=== PATIENT | female | born 1955 | race Asian ===

== ENCOUNTER 2017-09-14 02:49 | Emergency (ER) | payer OTHER, SELFPAY | END 2017-09-14 04:38 | PROVIDERS: Emergency Provider Emergency Medicine; Visit Provider Emergency Medicine | DX: R55 Syncope and collapse (principal) | CPT/HCPCS: 36415; 80053; 84484; 85025; 85610; 85730; 93005; 93010; 96360; 99058; 99284 ==

== ENCOUNTER → 2017-10-17 16:05 | Outpatient (CLI) | payer OTHER, SELFPAY ==
--- NOTE | 2017-10-17 | DI.CT.S_ITS ---
PROCEDURE: CT ANGIO CHEST INDICATIONS: ATRIAL FIBRILLATION TECHNIQUE: After the administration of intravenous contrast, 3 mm thick sections acquired from the pulmonary apices to the posterior costophrenic angles. 3-dimensional maximum intensity projection (MIP) coronal reformats were then acquired parallel to the pulmonary veins. For radiation dose reduction, the following was used: automated exposure control, adjustment of mA and/or kV according to patient size. COMPARISON: [place], [place], PET/CT SKULL TO MID THIGH, 09/06/2011, 16:53. [place], PET/CT SKULL TO MID THIGH, 07/30/2013, 15:40. [facility], , XR CHEST 1V, 10/12/2017, 8:37. FINDINGS: Image quality: Excellent. Pulmonary veins: 4 pulmonary veins are identified. * Right superior pulmonary vein: 1.6 x 1.7 cm diameter, 0.3 cm from ostium to 1st order branch. * Right inferior pulmonary vein: 2.3 cm in diameter in the axial plane, there is early branching with approximately 0.1-0.2 cm from ostium to the 1st order branch. * Left superior pulmonary vein: 2.2 x 2.7 cm diameter, 1.6 cm from ostium to 1st order branch. * Left inferior pulmonary vein: 1.7 x 1.6 cm diameter, 0.4 cm from ostium to 1st order branch. * Supernumerary pulmonary veins: none. Lungs and pleura: There is scarring redemonstrated within the lung apices. Mild scarring is also demonstrated within the lung bases including a inferior right middle lobe. There is minimal dependent atelectasis . Small nodular foci are demonstrated along the major fissures bilaterally which appear similar to the prior study. No pleural effusions or pneumothorax. Central and peripheral airways are patent. Mediastinum: Heart size is normal in overall size with left atrial enlargement. No pericardial effusion. No mediastinal or hilar adenopathy by size criteria. There is a left-sided superior vena cava demonstrated. Thoracic aorta and pulmonary arteries are normal in caliber and enhancement. No filling defects to suggest pulmonary embolism. Esophagus is normal in caliber, without hiatal hernia. Bones and chest wall: No suspicious bony lesions. Ribs and thoracic spine appear intact throughout. No axillary or supraclavicular adenopathy. Thyroid gland demonstrates mild heterogeneity without a focal dominant nodule. Abdomen: Visualized upper abdomen demonstrates a small cyst within the pancreatic body measuring up to 0.6 cm which appears stable in size compared to the prior studies. IMPRESSION: 1. Left atrial enlargement. 2. 4 pulmonary veins demonstrated with early branching of the right inferior pulmonary vein. 3. 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 Dictated by: Janusz Alba M.D. on 10/17/2017 at 17:02 Approved by: Janusz Alba M.D. on 10/17/2017 at 17:14
== END ==
PROVIDERS: PCP Family Medicine; Visit Provider Internal Medicine Cardiovascular Disease
DX: I48.91 Unspecified atrial fibrillation (principal); I51.7 Cardiomegaly; K86.2 Cyst of pancreas
CPT/HCPCS: 71275; Q9967

== ENCOUNTER 2020-05-27 03:43 | Emergency (ER) | payer OTHER, SELFPAY ==
[2020-05-27 03:45] VITALS: BP 124/83; PULSE 64; RESP 18; TEMP 36.6; O2SAT 97
--- NOTE | 2020-05-27 03:46 | ED_ITS ---
HPI - Chest Pain General Chief Complaint: Arrhythmia/Palpitations Stated Complaint: Chest burning Time Seen by Provider: 05/27/20 03:45 Source: patient and EMS Mode of arrival: EMS Limitations: no limitations History of Present Illness HPI narrative: 64-year-old female nonsmoker with history of hypertension, hyperlipidemia, atrial fib (on Xarelto) presents by EMS for evaluation of anterior chest burning. She went to bed in her normal state of health and woke with a burning in her anterior chest and the sensation of a rapid, irregular heart rate. 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 This did not help and she called EMS. THey found her initial HR to be 150s and irregular. She's had no fever or chills. She was given Cardizem 25mg IVP and HR dropped to the 80s and her symptoms resolved. MD complaint: chest pain Onset (ago): hour(s) Duration: now resolved Onset: during rest Pain location: substernal Severity: moderate Quality: other Related Data On Oral Contraceptives: No Home Medications Medication Instructions Recorded Confirmed atorvastatin [Lipitor] 10 mg PO DAILY 10/12/17 10/12/17 ibandronate 150 mg PO QMONTH 10/12/17 10/12/17 levothyroxine [Synthroid] 50 mcg PO DAILY 10/12/17 10/12/17 loratadine [Claritin] 10 mg PO DIRECTED PRN 10/12/17 10/12/17 metoprolol tartrate 25 mg PO DIRECTED PRN 10/12/17 10/12/17 rivaroxaban [Xarelto] 20 mg PO DAILY 10/12/17 10/12/17 Allergies Allergy/AdvReac Type Severity Reaction Status Date / Time acetaminophen Allergy Mild Verified 10/12/17 08:34 [From Darvocet-N] codeine Allergy Mild Verified 10/12/17 08:34 propoxyphene Allergy Mild Verified 10/12/17 08:34 [From Darvocet-N] simvastatin Allergy Mild Verified 10/12/17 08:34 Tpwlyui-Hrc-Pzl Reductase Allergy Mild Verified 10/12/17 08:34 Inhibitor Review of Systems Constitutional Constitutional: Denies chills, Denies fatigue, Denies fever(s), Denies frequent falls, Denies lethargy and Denies weakness Eyes Eyes: Denies change in vision, Denies eye discharge, Denies irritation and Denies loss of vision ENT Ears, Nose, Mouth, and Throat: Denies change in voice, Denies dizziness, Denies neck pain, Denies sore throat and Denies throat swelling Cardiovascular Cardiovascular: Reports chest pain, Reports irregular heart rhythm, Denies lightheadedness, Reports palpitations, Denies dyspnea, Denies dyspnea on exertion and Denies orthopnea Respiratory Respiratory: Denies cough, Denies dyspnea, Denies dyspnea on exertion and Denies wheezing Gastrointestinal Gastrointestinal: Denies abdominal pain, Denies change in bowel habits, Denies diarrhea, Denies nausea and Denies vomiting Musculoskeletal Musculoskeletal: Denies neck pain and Denies numbness Integumentary/Breasts Skin/Breast: Denies pruritus, Denies erythema, Denies rash and Denies wounds Neurologic Neurologic: Denies behavioral changes, Denies confusion, Denies dizziness, Denies frequent falls, Denies loss of vision, Denies numbness and Denies weakness Psychiatric Psychiatric: Denies anxiety, Denies behavioral changes, Denies confusion, Denies depression, Denies homicidal ideation and Denies suicidal ideation Endocrine Endocrine: Denies fatigue, Denies flushing and Reports palpitations Hematologic/Lymphatic Hematologic/Lymphatic: Denies easy bruising Allergic/Immunologic Allergic/Immunologic: Denies urticaria, Denies throat swelling and Denies wheezing Patient History Social History Smoking Status: Never smoker Smoking Status: Never smoker alcohol intake frequency: 0-2 drinks per day Substance Use Type: does not use Exam Narrative Exam Narrative: GENERAL: [64] year old patient appears stated age. Well- nourished, well-developed patient, in mild distress. HEAD: Atraumatic. Normocephalic. EYES: Pupils equal round and reactive. Extraocular motions intact. No scleral icterus. No injection or drainage. ENT: Nose without bleeding, purulent drainage. Throat without erythema, tonsillar hypertrophy or exudate. Airway patent. NECK: Trachea midline. Non tender CARDIOVASCULAR: Regular rate and rhythm without murmurs, gallops, or rubs. RESPIRATORY: Clear to auscultation. Breath sounds equal bilaterally. No wheezes, rales, or rhonchi. GASTROINTESTINAL: Abdomen soft, non-tender, nondistended. EXTREMITIES: No edema or joint tenderness. BACK: Nontender without deformity or crepitance. No flank tenderness. NEURO: AOx3. SKIN: No rash or erythema of visible areas Initial Vital Signs Initial Vital Signs: Vital Signs Temperature 97.9 F 05/27/20 03:45 Pulse Rate 64 05/27/20 03:45 Respiratory Rate 18 05/27/20 03:45 Blood Pressure 124/83 05/27/20 03:45 Pulse Oximetry 97 05/27/20 03:45 Course Course Course Narrative: Soon after connecting to rate the monitor, and before EKG obtained she spontaneously resolved to a sinus rhythm. She continues to be asymptomatic Orders Ordered: ED Orders 05/27/20 EKG-12 Lead Stat 05/27/20 04:15 Basic Metabolic Panel Stat Complete Blood Count AUTO DIFF Stat NT-proBNP (BNP-Adult 18+) Stat Troponin & CK Cardiac Panel Stat Reevaluation(s) Reevaluation #1: continues to be asymptomatic. is now at the bedside. Questions answered. Consultations Consultation #1: discussed with oncall Cardio Isabel) to review case. Her EKG is at her baseline. She is asymptomatic. No new medication changes. Ok for DC and follow up. Vital Signs Vital signs: Vital Signs - 8 hr 05/27/20 03:45 05/27/20 03:59 05/27/20 04:00 Temperature 97.9 F Pulse Rate 64 59 L 59 L Respiratory Rate 18 17 14 Blood Pressure 124/83 Pulse Oximetry 97 98 98 05/27/20 04:30 05/27/20 04:38 Temperature Pulse Rate 54 L 58 L Respiratory Rate 18 15 Blood Pressure 105/58 L Pulse Oximetry 96 100 MDM - Chest Pain Lab Data Result diagrams: 05/27/20 04:15 05/27/20 04:15 Labs: Lab Results 05/27/20 05/27/20 Range/Units 04:15 04:15 WBC 4.8 (4.5-11.0) X10^3/uL RBC 4.08 (4.0-5.2) X10^6/uL Hgb 12.1 (12.0-16.0) g/dL Hct 37.0 (36-46) % MCV 90.5 (80-100) fL MCH 29.6 (26-34) PG MCHC 32.7 (30-36) % RDW 14.0 (11.6-14.8) % Plt Count 188 (150-400) X10^3/uL Neut % (Auto) 63.2 (50-75) % Lymph % (Auto) 27.7 (25-40) % [place] % (Auto) 6.3 (3-14) % Eos % (Auto) 1.9 L (2-4) % Baso % (Auto) 0.9 (0-2) % Neut # (Auto) 3000 (4966-0697) /uL Lymph # (Auto) 1300 (4564-5156) /uL [place] # (Auto) 300 (0-900) /uL Eos # (Auto) 100 (0-450) /uL Baso # (Auto) 0 (0-100) /uL Sodium 138 (137-145) mmol/L Potassium 3.4 (3.4-5.1) mmol/L Chloride 107 (98-107) mmol/L Carbon Dioxide 29 (22-32) mmol/L BUN 17 (7-17) mg/dL Creatinine 0.58 (0.52-1.04) mg/dL Estimated GFR > 60.0 (>60) mL/min BUN/Creatinine Ratio 29.3 H (6-22) Glucose 115 H (80-110) mg/dL Calcium 9.2 (8.4-10.2) mg/dL Total Creatine Kinase 68 (30-135) U/L CK-MB (CK-2) TNP CK-MB (CK-2) Rel Index TNP Troponin I < 0.012 (0.01-0.034) ng/mL NT-Pro-B Natriuret Pep 223 H (<125) pg/mL Discharge Plan Departure Patient Disposition: Home Clinical Impression: Atrial fibrillation Qualifiers: Atrial fibrillation type: paroxysmal Qualified Code(s): I48.0 - Paroxysmal atrial fibrillation Instructions: DI for Atrial Fibrillation Activity Restrictions/Additional Instructions: *You have been diagnosed with [rapid atrial fibrillation, resolved] *What to do: * continue to take medications as directed *Follow up with your cardiology group, call Friday morning for an appointment. Let them know you were seen in the Emergency Department and that we ask that you be seen in follow up *Return to ER if you should have any new, worsening or concerning symptoms Prescriptions: No Action rivaroxaban [Xarelto] 20 mg tablet 20 mg PO DAILY RF: 0 atorvastatin [Lipitor] 10 mg tablet 10 mg PO DAILY RF: 0 levothyroxine [Synthroid] 25 mcg tablet 50 mcg PO DAILY RF: 0 loratadine [Claritin] 10 mg tablet 10 mg PO DIRECTED PRN (Reason: Allergic Symptoms) RF: 0 metoprolol tartrate 25 mg tablet 25 mg PO DIRECTED PRN (Reason: Atrial Fibrillation) RF: 0 ibandronate 150 mg tablet 150 mg PO QMONTH RF: 0 Referrals: Carlin Hannah MD [Non-Staff] - Cleo Pal DO [Primary Care Provider] -
[2020-05-27 03:59] VITALS: PULSE 59; RESP 17; O2SAT 98
[2020-05-27 04:00] VITALS: PULSE 59; RESP 14; O2SAT 98
[2020-05-27 04:29] LABS: Add Manual Diff / Slide Review NO; Basophils Absolute Auto 0 /uL (0-100); Basophils Percent Auto 0.9 % (0-2); Eosinophils Absolute Auto 100 /uL (0-450); Eosinophils Percent Auto 1.9 % (2-4); Hemoglobin 12.1 g/dL (12.0-16.0); Lymphocytes Absolute Auto 1300 /uL (1100-4500); Lymphocytes Percent Auto 27.7 % (25-40); Mean Corpuscular HGB Conc 32.7 % (30-36); Mean Corpuscular Hemoglobin 29.6 PG (26-34); Mean Corpuscular Volume 90.5 fL (80-100); Monocytes Absolute Auto 300 /uL (0-900); Monocytes Percent Auto 6.3 % (3-14); Neutrophils Absolute Auto 3000 /uL (1500-7000); Neutrophils Percent Auto 63.2 % (50-75); Platelet Count 188 X10^3/uL (150-400); Red Blood Cell Count 4.08 X10^6/uL (4.0-5.2); White Blood Cell Count 4.8 X10^3/uL (4.5-11.0)
[2020-05-27 04:30] VITALS: PULSE 54; RESP 18; O2SAT 96
[2020-05-27 04:37] LABS: BUN Creatinine Ratio 29.3 (6-22); Blood Urea Nitrogen 17 mg/dL (7-17); Calcium 9.2 mg/dL (8.4-10.2); Carbon Dioxide 29 mmol/L (22-32); Chloride 107 mmol/L (98-107); Creatine Kinase 68 U/L (30-135); Estimated Glomerular Filt Rate > 60.0 mL/min (>60); Glucose 115 mg/dL (80-110); HEMOLYSIS < 15 (0-50); Potassium 3.4 mmol/L (3.4-5.1); Sodium 138 mmol/L (137-145)
[2020-05-27 04:38] VITALS: BP 105/58; PULSE 58; RESP 15; O2SAT 100
[2020-05-27 04:49] LABS: NT-proBNP (BNP-Adult 18+) 223 pg/mL (<125); Troponin I < 0.012 ng/mL (0.01-0.034)
== END 2020-05-27 05:20 | disposition home or self-care (01) ==
PROVIDERS: Emergency Provider Emergency Medicine; PCP Family Medicine
DX: I48.0 Paroxysmal atrial fibrillation (principal); Z79.01 Long term (current) use of anticoagulants; I10 Essential (primary) hypertension; E78.5 Hyperlipidemia, unspecified; R00.2 Palpitations
CPT/HCPCS: 36415; 80048; 82550; 83880; 84484; 85025; 93005; 99283; 99284

== ENCOUNTER 2021-10-26 18:57 | Emergency (ER) | payer OTHER, SELFPAY ==
[2021-10-26] VITALS (7 sets, daily range): BP systolic 130–156; BP diastolic 70–93; PULSE 63–76; RESP 17–28; TEMP 36.8; O2SAT 99–100; BMI 21.9
--- NOTE | 2021-10-26 18:55 | ED_ITS ---
HPI - Chest Pain General Chief Complaint: Arrhythmia/Palpitations Stated Complaint: a-fib Time Seen by Provider: 10/26/21 19:00 History of Present Illness HPI narrative: A 66-year-old female nonsmoker with history of AFib with prior ablation, cardioversion is a is on Xarelto presents by EMS for evaluation of sudden onset rapid heart rate with dizziness and shortness of breath since . She denies any change in her medications and has been on her Xarelto for at least 3 weeks. She denies chest pain or pressure, just stating that she feels fatigued and lightheaded. EMS found her with a heart rate in the 130s, at 1 point her blood pressure dropped into the 90s and improved to the 115 to after 400 cc bolus of normal saline. She is otherwise well and free of complaint Related Data Home Medications Medication Instructions Recorded Confirmed atorvastatin 10 mg tablet 10 mg PO DAILY 10/12/17 10/12/17 ibandronate 150 mg tablet 150 mg PO QMONTH 10/12/17 10/12/17 levothyroxine 25 mcg tablet 50 mcg PO DAILY 10/12/17 10/12/17 loratadine 10 mg tablet 10 mg PO DIRECTED PRN 10/12/17 10/12/17 metoprolol tartrate 25 mg tablet 25 mg PO DIRECTED PRN 10/12/17 10/12/17 rivaroxaban 20 mg tablet 20 mg PO DAILY 10/12/17 10/12/17 Allergies Allergy/AdvReac Type Severity Reaction Status Date / Time acetaminophen Allergy Mild Verified 10/12/17 08:34 [From Darvocet-N] codeine Allergy Mild Verified 10/12/17 08:34 propoxyphene Allergy Mild Verified 10/12/17 08:34 [From Darvocet-N] simvastatin Allergy Mild Verified 10/12/17 08:34 Ecqgjej-GJX-OuL Reductase Allergy Mild Verified 10/12/17 08:34 Inhibitor [Thomdep-Fvn-Vwn Reductase Inhibitor] Review of Systems Review of Systems Narrative: GENERAL: Denies chills, fatigue, malaise, fever, sweats. HEENT: Denies sinus pain, ear pain, sore throat, difficulty swallowing, dizziness. RESPIRATORY: See HPI. CARDIOVASCULAR: See HPI GASTROINTESTINAL: Denies nausea, vomiting, abdominal pain, diarrhea, constipation, melena. : Denies dysuria, frequency, incontinence, hematuria, urinary retention. MUSCULOSKELETAL: denies weakness, joint pain, or bony pain SKIN: Denies rash, skin lesions, or other NEUROLOGIC: Denies weakness, headache, numbness, change in speech, confusion, seizures, incoordination. PSYCHIATRIC: No concerning psychosocial issues. 12 point review of systems is negative except for those stated above Patient History Social History Smoking Status: Never smoker Smoking Status: Never smoker alcohol intake frequency: 0-2 drinks per day Substance Use Type: does not use Exam Narrative Exam Narrative: GENERAL: [66] year old patient appears stated age. Well-developed patient, in mild distress. HEAD: Atraumatic. Normocephalic. EYES: Pupils equal round and reactive. Extraocular motions intact. No scleral icterus. No injection or drainage. ENT: Nose without bleeding, purulent drainage. Throat without erythema, tonsillar hypertrophy or exudate. Airway patent. NECK: Trachea midline. Non tender CARDIOVASCULAR: Regular rate and rhythm without murmurs, gallops, or rubs. RESPIRATORY: Clear to auscultation. Breath sounds equal bilaterally. No wheezes, rales, or rhonchi. GASTROINTESTINAL: Abdomen soft, non-tender, nondistended. EXTREMITIES: No edema or joint tenderness. BACK: Nontender without deformity or crepitance. No flank tenderness. NEURO: AOx3. SKIN: No rash or erythema of visible areas Initial Vital Signs Initial Vital Signs: Vital Signs Temperature 98.3 F 10/26/21 19:00 Pulse Rate 76 10/26/21 19:00 Respiratory Rate 20 10/26/21 19:00 Blood Pressure 149/93 H 10/26/21 19:00 Pulse Oximetry 99 10/26/21 19:00 Course Course Course Narrative: Patient is found to be in a normal sinus rhythm other time she is connected to our monitor. Orders Ordered: Discontinued Medications Sodium Chloride (Normal Saline 0.9%) 1,000 mls @ 150 mls/hr IV CONT KHANG Last Admin: 10/26/21 19:28 Dose: 150 mls/hr Documented by: [email or web address] Propofol (Propofol 200 Mg/20 Ml Vial) 100 mg IV NOW ONE Stop: 10/26/21 19:01 Last Admin: 10/26/21 19:27 Dose: Not Given Documented by: RSTONE Vital Signs Vital signs: Vital Signs - 8 hr 10/26/21 19:00 Temperature 98.3 F Pulse Rate 76 Respiratory Rate 20 Blood Pressure 149/93 H Pulse Oximetry 99 MDM - Chest Pain Lab Data Result diagrams: 10/26/21 19:27 10/26/21 19:27 Labs: Lab Results 10/26/21 10/26/21 Range/Units 19:27 19:27 WBC 5.0 (4.5-11.0) X10^3/uL RBC 4.13 (4.0-5.2) X10^6/uL Hgb 12.2 (12.0-16.0) g/dL Hct 36.5 (36-46) % MCV 88.3 (80-100) fL MCH 29.6 (26-34) PG MCHC 33.5 (30-36) % RDW 13.8 (11.6-14.8) % Plt Count 187 (150-400) X10^3/uL Neut % (Auto) 75.1 H (50-75) % Lymph % (Auto) 19.0 L (25-40) % [place] % (Auto) 4.5 (3-14) % Eos % (Auto) 0.8 L (2-4) % Baso % (Auto) 0.6 (0-2) % Neut # (Auto) 3800 (3944-3086) /uL Lymph # (Auto) 1000 L (1201-6726) /uL [place] # (Auto) 200 (0-900) /uL Eos # (Auto) 0 (0-450) /uL Baso # (Auto) 0 (0-100) /uL Sodium 138 (137-145) mmol/L Potassium 3.9 (3.4-5.1) mmol/L Chloride 107 (98-107) mmol/L Carbon Dioxide 24 (22-32) mmol/L BUN 20 H (7-17) mg/dL Creatinine 0.74 (0.52-1.04) mg/dL Estimated GFR > 60 (>60) mL/min BUN/Creatinine Ratio 27.0 H (6-22) Glucose 93 (80-110) mg/dL Calcium 8.8 (8.4-10.2) mg/dL Total Bilirubin 0.6 (0.2-1.3) mg/dL AST 39 H (14-36) IU/L ALT 24 (<35) IU/L Alkaline Phosphatase 72 (38-126) U/L Total Creatine Kinase 99 (30-135) U/L CK-MB (CK-2) TNP CK-MB (CK-2) Rel Index TNP Troponin I < 0.012 (0.01-0.034) ng/mL Total Protein 7.3 (6.3-8.2) g/dL Albumin 4.1 (3.5-5.0) g/dL Globulin 3.2 (1.7-4.1) g/dL Albumin/Globulin Ratio 1.3 (1.0-2.8) Lipase 157 (23-300) U/L MDM Narrative Medical decision making narrative: 66-year-old female with known cardiac arrhythmia is brought by EMS for rapid atrial fibrillation that started just prior to arrival. No medications were given. She does take Xarelto and we were in preparation to cardio immediately after arrival, however even by the time initial EKG was performed she converted to a normal sinus rhythm. Along with this conversion to sinus rhythm patient became completely asymptomatic. She was observed for about 90 minutes, labs were obtained which were unremarkable. No indication for intervention at this time. Return precautions discussed and questions answered to her apparent satisfaction Discharge Plan Departure Patient Disposition: Home Clinical Impression: Atrial fibrillation Instructions: DI for Atrial Fibrillation Activity Restrictions/Additional Instructions: *You have been diagnosed with [rapid atrial fibrillation with spontaneous resolution] *What to do: *Please continue to take your regular medications as directed. [ ] New medication prescriptions sent to your pharmacy: [ ] [ ] New medication written as a paper prescription [x ] No new medications given *Please follow up with your primary care provider in 2-3 days, call for an appointment. Let them know you were seen in the Emergency Department and that we ask that you be seen in follow up. We will electronically transmit a record of today's note if your PCP is in our system *If you do not have a primary care provider please contact the [facility] Resource line at [phone]. They will ask some questions about your medical history and help get you set up with a doctor in the community. *Return to Emergency Department if you should have any new, worsening or concerning symptoms, such as [fever greater than 101 F, shaking chills, worsening pain, persistent vomiting or other bothersome symptoms] Prescriptions: No Action rivaroxaban [Xarelto] 20 mg tablet 20 mg PO DAILY 0RF atorvastatin [Lipitor] 10 mg tablet 10 mg PO DAILY 0RF levothyroxine [Synthroid] 25 mcg tablet 50 mcg PO DAILY 0RF loratadine [Claritin] 10 mg tablet 10 mg PO DIRECTED PRN (Reason: Allergic Symptoms) 0RF Label Comments: Take 1 tablet by mouth once a day as directed metoprolol tartrate 25 mg tablet 25 mg PO DIRECTED PRN (Reason: Atrial Fibrillation) 0RF ibandronate 150 mg tablet 150 mg PO QMONTH 0RF Referrals: Cleo Pal DO [Non-Staff] -
--- NOTE | 2021-10-26 18:56 | DI.RAD.S_ITS ---
PROCEDURE: XR CHEST 1V INDICATIONS: Afib TECHNIQUE: One view of the chest was acquired. COMPARISON: [facility], CR, XR CHEST 1V, 10/12/2017, 8:37. FINDINGS: Surgical changes and devices: None. Lungs and pleura: Mild pulmonary vascular congestion is likely present. No definite focal infiltrate. No pleural effusions or pneumothorax. Mediastinum: Tortuous thoracic aorta is seen with aortic arch calcification. Heart size is enlarged. Bones and chest wall: No suspicious bony lesions. Overlying soft tissues appear unremarkable. IMPRESSION: Cardiomegaly and mild congestion. No focal infiltrate, pleural effusion or pneumothorax. Dictated by: Reza Stratton M.D. on 10/26/2021 at 19:39 Approved by: Reza Stratton M.D. on 10/26/2021 at 19:39
[2021-10-26] MEDS: SODIUM CHLORIDE 0.9% 1,000 ML 150 ML IV (19:28)
[2021-10-26 19:51] LABS: Add Manual Diff / Slide Review NO; Basophils Absolute Auto 0 /uL (0-100); Basophils Percent Auto 0.6 % (0-2); Eosinophils Absolute Auto 0 /uL (0-450); Eosinophils Percent Auto 0.8 % (2-4); Hematocrit 36.5 % (36-46); Hemoglobin 12.2 g/dL (12.0-16.0); Lymphocytes Absolute Auto 1000 /uL (1100-4500); Mean Corpuscular HGB Conc 33.5 % (30-36); Mean Corpuscular Hemoglobin 29.6 PG (26-34); Mean Corpuscular Volume 88.3 fL (80-100); Monocytes Absolute Auto 200 /uL (0-900); Monocytes Percent Auto 4.5 % (3-14); Neutrophils Absolute Auto 3800 /uL (1500-7000); Neutrophils Percent Auto 75.1 % (50-75); Platelet Count 187 X10^3/uL (150-400); Red Blood Cell Count 4.13 X10^6/uL (4.0-5.2); Red Cell Distribution Width 13.8 % (11.6-14.8)
[2021-10-26 19:58] LABS: Alanine Aminotransferase 24 IU/L (<35); Albumin 4.1 g/dL (3.5-5.0); Albumin Globulin Ratio 1.3 (1.0-2.8); Alkaline Phosphatase 72 U/L (38-126); Aspartate Aminotransferase 39 IU/L (14-36); Bilirubin Total 0.6 mg/dL (0.2-1.3); Blood Urea Nitrogen 20 mg/dL (7-17); Calcium 8.8 mg/dL (8.4-10.2); Carbon Dioxide 24 mmol/L (22-32); Chloride 107 mmol/L (98-107); Creatine Kinase 99 U/L (30-135); Estimated Glomerular Filt Rate > 60 mL/min (>60); Globulin 3.2 g/dL (1.7-4.1); Glucose 93 mg/dL (80-110); HEMOLYSIS < 15 (0-50); Lipase 157 U/L (23-300); Potassium 3.9 mmol/L (3.4-5.1); Sodium 138 mmol/L (137-145); Total Protein 7.3 g/dL (6.3-8.2)
[2021-10-26 20:09] LABS: Troponin I < 0.012 ng/mL (0.01-0.034)
== END 2021-10-26 20:59 | disposition home or self-care (01) ==
PROVIDERS: Emergency Provider Emergency Medicine
DX: I48.91 Unspecified atrial fibrillation (principal); R06.02 Shortness of breath; Z79.01 Long term (current) use of anticoagulants
CPT/HCPCS: 36415; 71045; 80053; 82550; 83690; 84484; 85025; 93005; 93010; 99284